=== PATIENT | female | born 1935 ===

== ENCOUNTER 2019-03-05 07:49 | Outpatient (CLI) | payer OTHER ==
[2019-03-07] MEDS ORDERED: SYNTHROID88 MCG PO (07:51)
[2019-03-07] MEDS ORDERED: Septra Ds Tablet PO (19:18)
[2019-03-07] MEDS ORDERED: OXYC1TAB9 PO (19:18)
== END 2019-03-05 08:02 | disposition home or self-care (01) ==
LOC: LAB 07:49
DX: D68.8 Other specified coagulation defects (principal); Z01.818 Encounter for other preprocedural examination

== ENCOUNTER → 2019-03-07 | Day surgery (SDC) | payer OTHER ==
[~2019-03-07] MED LIST: OXYC1TAB9 PO; SYNTHROID88 MCG PO; Septra Ds Tablet PO
== END | disposition home or self-care (01) ==
LOC: CIR.AMB 07:16
DX: S86.011A Strain of right Achilles tendon, initial encounter (principal); M77.31 Calcaneal spur, right foot
CPT/HCPCS: 28300; 27650; 27685; C1776